=== PATIENT | male | born 1970 | race African-American/Black ===

== ENCOUNTER 2020-12-24 01:21 | Inpatient (IN) | payer MEDICARE ==
[2020-12-24] MEDS ORDERED: Nitroglycerin 2% Ointment 1 INCH/1 GM Packet ONE ×2 (01:34→03:21)
[2020-12-24] MEDS ORDERED: Aspirin 325 MG TAB ONE (02:29)
[2020-12-24 02:42] LABS: ALT (SGPT) 21 U/L (8-55); AST (SGOT) 27 U/L (5-34); Albumin 4.2 g/dL (3.5-5.0); Alkaline Phosphatase 87 U/L (40-110); Anion Gap 22 mmol/L (10-20); BUN (Urea Nitrogen) 66 mg/dL (8.4-25.7); Bilirubin, Total 0.4 mg/dL (0.2-1.2); Calc. Creatinine Clearance 0 mL/min (70-130); Calcium 8.6 mg/dL (7.8-10.44); Carbon Dioxide 27 mmol/L (22-29); Chloride 96 mmol/L (98-107); Globulin 3.3 g/dL (2.4-3.5); Glucose 94 mg/dL (70-105); Potassium 5.3 mmol/L (3.5-5.1); Protein, Total 7.5 g/dL (6.0-8.3); Sodium 140 mmol/L (136-145)
[2020-12-24 03:00] LABS: CKMB 2.7 ng/mL (0-6.6)
[2020-12-24 03:02] LABS: #Basophils 0.1 10x3/uL (0.0-0.2); #Eosinphils 0.2 10x3/uL (0.0-0.5); #Monocytes 0.4 10x3/uL (0.0-1.1); #Neutrophils 3.8 10x3/uL (1.5-8.4); %Basophils 0.9 % (0.0-2.0); %Eosinophils 3.6 % (0.0-6.0); %Lymphocytes 32.3 % (18.0-47.0); %Monocytes 6.3 % (0.0-10.0); %Neutrophils 56.6 % (40.0-75.0); Hemoglobin 10.9 g/dL (13.5-17.5); Mean Corpuscular HGB CONC 34.6 g/dL (32.0-36.0); Mean Corpuscular Hemoglobin 30.9 pg (27.0-33.0); Mean Corpuscular Volume 89.2 fl (81.2-95.1); Mean Platelet Volume 9.6 fl (7.4-10.4); Platelet Count 227 10x3/uL (150-450); Red Blood Cell (RBC) Count 3.53 10x6/uL (4.32-5.72); White Blood Cell (WBC) Count 6.7 10x3/uL (3.5-10.5)
[2020-12-24 03:03] LABS: Large Platelets SLIGHT; Platelet Morphology Comment Appears Adequate
[2020-12-24 03:07] LABS: SARS-CoV-2 NAA Rapid Test Not Detected (NotDetected)
[2020-12-24] MEDS ORDERED: Guaifenesin DM 100-10/5 ML UDCUP PO PRN (03:48)
[2020-12-24] MEDS ORDERED: Acetaminophen 325 MG TAB PO PRN (03:48)
[2020-12-24] MEDS ORDERED: Dextrose 50% Abboject 50 ML SYRINGE SLOW IVP PRN (03:48)
[2020-12-24] MEDS ORDERED: Dextrose 5% in Water 1,000 ML IV PRN (03:48)
[2020-12-24] MEDS ORDERED: Ondansetron PF 4 MG/2 ML Vial IVP PRN (03:48)
[2020-12-24] MEDS ORDERED: Nitroglycerin 2% Ointment 1 INCH/1 GM Packet TOP PRN (03:51)
[2020-12-24] MEDS ORDERED: hydrALAZINE 20 MG/ML VIAL SLOW IVP PRN (03:51)
[2020-12-24] MEDS ORDERED: cloNIDine 0.1 MG TAB ONE (04:15)
[2020-12-24] MEDS ORDERED: HYDROcodone/Acetaminophen 5/325 mg Tablet ONE (04:16)
[2020-12-24] MEDS ORDERED: Labetalol HCl 100 MG/20 ML VIAL ONE (04:16)
[2020-12-24] MEDS ORDERED: Labetalol HCl 100 MG/20 ML VIAL SLOW IVP PRN (04:22)
[2020-12-24 06:19] VITALS: BMI 35.2
[2020-12-24 07:03] LABS: CKMB 2.3 ng/mL (0-6.6)
[2020-12-24] MEDS ORDERED: hydrALAZINE 25 MG TAB PO SCH (09:00)
[2020-12-24 10:27] LABS: Anion Gap 18 mmol/L (10-20); BUN (Urea Nitrogen) 71 mg/dL (8.4-25.7); Calc. Creatinine Clearance 10 mL/min (70-130); Calcium 7.9 mg/dL (7.8-10.44); Carbon Dioxide 27 mmol/L (22-29); Chloride 99 mmol/L (98-107); Glucose 72 mg/dL (70-105); Potassium 5.3 mmol/L (3.5-5.1); Sodium 139 mmol/L (136-145)
[2020-12-24 10:51] LABS: CKMB 1.9 ng/mL (0-6.6)
[2020-12-24] MEDS ORDERED: Heparin 10,000 UNITS/ 10 ML VIAL SLOW IVP PRN (11:37)
[2020-12-24] MEDS ORDERED: HYDROcodone/Acetaminophen 5/325 mg Tablet PO PRN (17:07)
[2020-12-24] MEDS: glipiZIDE 10 MG TAB PO SCH (19:31)
[2020-12-24] MEDS: Sevelamer Carbonate 800 MG TAB PO SCH ×2 (19:31→19:32)
[2020-12-24] MEDS: Aspirin 81 mg Enteric Coated Tablet PO SCH (19:32)
[2020-12-24] MEDS: cloNIDine 0.1 MG TAB PO SCH ×2 (19:32→20:53)
[2020-12-24] MEDS: Clopidogrel Bisulfate 75 MG TAB PO SCH (19:32)
[2020-12-24] MEDS: Heparin 5,000 UNITS/ML VIAL SC SCH ×3 (19:32→20:51)
[2020-12-24] MEDS: Cholecalciferol 1,000 UNITS (25 MCG) TAB PO SCH ×2 (19:32→20:50)
[2020-12-24] MEDS: Amlodipine 10 MG TAB PO SCH (19:32)
[2020-12-24] MEDS: hydrALAZINE 25 MG TAB PO SCH ×2 (19:33→20:53)
[2020-12-24] MEDS: Lantus 1000 UNITS/10 ML VIAL SC SCH (19:33)
[2020-12-24] MEDS: Metoprolol Tartrate 50 MG TAB PO SCH ×2 (19:33→20:53)
[2020-12-24] MEDS: HYDROcodone/Acetaminophen 10/325 mg Tablet PO PRN (20:40)
[2020-12-24] MEDS ORDERED: Atorvastatin Calcium 40 MG TAB PO SCH (21:00)
[2020-12-24] MEDS ORDERED: cloNIDine 0.1 MG TAB PO SCH (21:00)
[2020-12-25] MEDS: HYDROcodone/Acetaminophen 10/325 mg Tablet PO PRN ×3 (00:49→20:39)
[2020-12-25] MEDS: HumaLOG 300 UNITS/3 ML VIAL SC PRN ×3 (00:54→21:34)
[2020-12-25 05:39] LABS: #Basophils 0.1 10x3/uL (0.0-0.2); #Eosinphils 0.2 10x3/uL (0.0-0.5); #Monocytes 0.5 10x3/uL (0.0-1.1); #Neutrophils 4.2 10x3/uL (1.5-8.4); %Basophils 0.7 % (0.0-2.0); %Eosinophils 3.2 % (0.0-6.0); %Lymphocytes 30.4 % (18.0-47.0); %Monocytes 7.2 % (0.0-10.0); %Neutrophils 58.2 % (40.0-75.0); Hemoglobin 8.2 g/dL (13.5-17.5); Mean Corpuscular HGB CONC 34.6 g/dL (32.0-36.0); Mean Corpuscular Hemoglobin 30.5 pg (27.0-33.0); Mean Corpuscular Volume 88.1 fl (81.2-95.1); Mean Platelet Volume 9.6 fl (7.4-10.4); Platelet Count 271 10x3/uL (150-450); RBC Distribution Width 14.7 % (11.5-14.5); Red Blood Cell (RBC) Count 2.69 10x6/uL (4.32-5.72); White Blood Cell (WBC) Count 7.1 10x3/uL (3.5-10.5)
[2020-12-25 05:59] LABS: ALT (SGPT) 15 U/L (8-55); AST (SGOT) 13 U/L (5-34); Albumin 3.8 g/dL (3.5-5.0); Alkaline Phosphatase 77 U/L (40-110); Anion Gap 15 mmol/L (10-20); BUN (Urea Nitrogen) 40 mg/dL (8.4-25.7); Bilirubin, Total 0.4 mg/dL (0.2-1.2); Calc. Creatinine Clearance 15 mL/min (70-130); Calcium 8.4 mg/dL (7.8-10.44); Carbon Dioxide 29 mmol/L (22-29); Chloride 94 mmol/L (98-107); Globulin 3.5 g/dL (2.4-3.5); Glucose 101 mg/dL (70-105); Potassium 4.2 mmol/L (3.5-5.1); Protein, Total 7.3 g/dL (6.0-8.3); Sodium 134 mmol/L (136-145)
[2020-12-25] MEDS: glipiZIDE 10 MG TAB PO SCH ×2 (08:30→19:16)
[2020-12-25] MEDS: Aspirin 81 mg Enteric Coated Tablet PO SCH (08:34)
[2020-12-25] MEDS: Clopidogrel Bisulfate 75 MG TAB PO SCH (08:34)
[2020-12-25] MEDS: Metoprolol Tartrate 50 MG TAB PO SCH ×2 (08:34→20:42)
[2020-12-25] MEDS: Sevelamer Carbonate 800 MG TAB PO SCH ×3 (08:37→19:15)
[2020-12-25] MEDS: hydrALAZINE 25 MG TAB PO SCH ×4 (08:42→21:34)
[2020-12-25] MEDS: Amlodipine 10 MG TAB PO SCH (08:42)
[2020-12-25] MEDS: Cholecalciferol 1,000 UNITS (25 MCG) TAB PO SCH ×2 (08:43→20:40)
[2020-12-25] MEDS: cloNIDine 0.1 MG TAB PO SCH ×2 (08:43→20:41)
[2020-12-25] MEDS: Lantus 1000 UNITS/10 ML VIAL SC SCH (08:45)
[2020-12-25] MEDS: Heparin 5,000 UNITS/ML VIAL SC SCH ×3 (08:46→20:41)
[2020-12-25] MEDS ORDERED: Epoetin (ESRD) 10,000 UNITS/ML VIAL SC SCH (09:00)
[2020-12-26 06:34] LABS: #Eosinphils 0.3 10x3/uL (0.0-0.5); #Monocytes 0.7 10x3/uL (0.0-1.1); #Neutrophils 3.5 10x3/uL (1.5-8.4); %Basophils 0.5 % (0.0-2.0); %Eosinophils 4.4 % (0.0-6.0); %Lymphocytes 36.7 % (18.0-47.0); %Monocytes 9.6 % (0.0-10.0); %Neutrophils 48.4 % (40.0-75.0); Hemoglobin 8.4 g/dL (13.5-17.5); Mean Corpuscular HGB CONC 34.3 g/dL (32.0-36.0); Mean Corpuscular Hemoglobin 30.3 pg (27.0-33.0); Mean Corpuscular Volume 88.4 fl (81.2-95.1); Mean Platelet Volume 9.9 fl (7.4-10.4); Platelet Count 284 10x3/uL (150-450); RBC Distribution Width 14.6 % (11.5-14.5); Red Blood Cell (RBC) Count 2.77 10x6/uL (4.32-5.72); White Blood Cell (WBC) Count 7.3 10x3/uL (3.5-10.5)
[2020-12-26 06:59] LABS: ALT (SGPT) 13 U/L (8-55); AST (SGOT) 12 U/L (5-34); Albumin 3.7 g/dL (3.5-5.0); Alkaline Phosphatase 75 U/L (40-110); Anion Gap 19 mmol/L (10-20); BUN (Urea Nitrogen) 60 mg/dL (8.4-25.7); Bilirubin, Total 0.3 mg/dL (0.2-1.2); Calc. Creatinine Clearance 11 mL/min (70-130); Calcium 8.3 mg/dL (7.8-10.44); Carbon Dioxide 28 mmol/L (22-29); Chloride 95 mmol/L (98-107); Globulin 3.4 g/dL (2.4-3.5); Glucose 129 mg/dL (70-105); Magnesium 2.4 mg/dL (1.6-2.6); Phosphorus 5.3 mg/dL (2.3-4.7); Protein, Total 7.1 g/dL (6.0-8.3); Sodium 137 mmol/L (136-145)
[2020-12-26] MEDS: Sevelamer Carbonate 800 MG TAB PO SCH (09:44)
[2020-12-26] MEDS: Amlodipine 10 MG TAB PO SCH (09:45)
[2020-12-26] MEDS: hydrALAZINE 25 MG TAB PO SCH ×2 (09:45→10:02)
[2020-12-26] MEDS: Aspirin 81 mg Enteric Coated Tablet PO SCH (09:45)
[2020-12-26] MEDS: Metoprolol Tartrate 50 MG TAB PO SCH (09:45)
[2020-12-26] MEDS: Clopidogrel Bisulfate 75 MG TAB PO SCH (09:45)
[2020-12-26] MEDS: cloNIDine 0.1 MG TAB PO SCH (09:46)
[2020-12-26] MEDS: Heparin 5,000 UNITS/ML VIAL SC SCH (09:48)
[2020-12-26] MEDS: Cholecalciferol 1,000 UNITS (25 MCG) TAB PO SCH (09:48)
[2020-12-26] MEDS: glipiZIDE 10 MG TAB PO SCH (09:50)
[2020-12-26] MEDS: Lantus 1000 UNITS/10 ML VIAL SC SCH (09:50)
[2020-12-26] MEDS: HYDROcodone/Acetaminophen 10/325 mg Tablet PO PRN (10:10)
[2020-12-26 12:51] VITALS: BP 168/93; TEMP 97.6
== END 2020-12-26 12:15 | disposition home or self-care (01) | DRG 291 ==
LOC: CSHERS 01:21 → CSHTELE 06:01
PROVIDERS: ADMIT Student in an Organized Health Care Education/Training Program; ATTEND Internal Medicine
PROC: 5A09457 Assistance with Respiratory Ventilation, 24-96 Consecutive Hours, Continuous Positive Airway Pressure (ICD-10-PCS; principal; 2020-12-24)
PROC: 5A1D70Z Performance of Urinary Filtration, Intermittent, Less than 6 Hours Per Day (ICD-10-PCS; 2020-12-24)
DX: I13.2 Hypertensive heart and chronic kidney disease with heart failure and with stage 5 chronic kidney disease, or end stage renal disease (principal); J96.01 Acute respiratory failure with hypoxia; N18.6 End stage renal disease; I50.33 Acute on chronic diastolic (congestive) heart failure; I16.1 Hypertensive emergency; Z20.822 Contact with and (suspected) exposure to COVID-19; E87.5 Hyperkalemia; D63.1 Anemia in chronic kidney disease; R77.8 Other specified abnormalities of plasma proteins; E87.79 Other fluid overload; E78.5 Hyperlipidemia, unspecified; I25.10 Atherosclerotic heart disease of native coronary artery without angina pectoris; Z95.5 Presence of coronary angioplasty implant and graft; E11.51 Type 2 diabetes mellitus with diabetic peripheral angiopathy without gangrene; E11.22 Type 2 diabetes mellitus with diabetic chronic kidney disease; E11.65 Type 2 diabetes mellitus with hyperglycemia; F17.210 Nicotine dependence, cigarettes, uncomplicated; Z79.84 Long term (current) use of oral hypoglycemic drugs; Z79.899 Other long term (current) drug therapy; Z95.820 Peripheral vascular angioplasty status with implants and grafts; Z88.5 Allergy status to narcotic agent; Z99.2 Dependence on renal dialysis; Z88.8 Allergy status to other drugs, medicaments and biological substances; Z83.3 Family history of diabetes mellitus; Z91.14 Patient's other noncompliance with medication regimen; Z79.01 Long term (current) use of anticoagulants
CPT/HCPCS: 0240U; 36415; 36416; 71045; 80053; 82553; 83735; 83880; 84100; 84484; 85025; 85379; 90935; 93005; 93306; 94660; 94760; 96374; 96376; G0257; J1644; J1815; Q4081

== ENCOUNTER 2020-12-27 11:45 | Outpatient (CLI) | payer MEDICARE | END 2020-12-27 11:46 | disposition home or self-care (01) | LOC: CSHWCC 11:45 | PROVIDERS: ATTEND Nurse Practitioner Family | DX: T81.89XD Other complications of procedures, not elsewhere classified, subsequent encounter (principal); E11.622 Type 2 diabetes mellitus with other skin ulcer; L98.499 Non-pressure chronic ulcer of skin of other sites with unspecified severity; G89.11 Acute pain due to trauma; L05.01 Pilonidal cyst with abscess; B96.89 Other specified bacterial agents as the cause of diseases classified elsewhere; I10 Essential (primary) hypertension | CPT/HCPCS: 97139; 97605; G0463; 99203 ==

== ENCOUNTER 2021-01-10 10:35 | Outpatient (CLI) | payer MEDICARE | END 2021-01-10 10:36 | disposition home or self-care (01) | LOC: CSHWCC 10:35 | PROVIDERS: ATTEND Nurse Practitioner Family | DX: T81.89XD Other complications of procedures, not elsewhere classified, subsequent encounter (principal); E11.622 Type 2 diabetes mellitus with other skin ulcer; L05.01 Pilonidal cyst with abscess; B96.89 Other specified bacterial agents as the cause of diseases classified elsewhere; G89.11 Acute pain due to trauma; I10 Essential (primary) hypertension | CPT/HCPCS: 99213; G0463 ==

== ENCOUNTER 2021-01-24 09:24 | Outpatient (CLI) | payer MEDICARE | END 2021-01-24 09:25 | disposition home or self-care (01) | LOC: CSHWCC 09:24 | PROVIDERS: ATTEND Nurse Practitioner Family | DX: T81.89XD Other complications of procedures, not elsewhere classified, subsequent encounter (principal); E11.622 Type 2 diabetes mellitus with other skin ulcer; G89.11 Acute pain due to trauma; I10 Essential (primary) hypertension; L05.01 Pilonidal cyst with abscess; B96.89 Other specified bacterial agents as the cause of diseases classified elsewhere | CPT/HCPCS: 97139; G0463; 99212 ==

== ENCOUNTER 2021-02-14 08:41 | Outpatient (CLI) | payer MEDICARE | END 2021-02-14 08:42 | disposition home or self-care (01) | LOC: CSHWCC 08:41 | PROVIDERS: ATTEND Nurse Practitioner Family | DX: T81.89XD Other complications of procedures, not elsewhere classified, subsequent encounter (principal); E11.622 Type 2 diabetes mellitus with other skin ulcer; L98.499 Non-pressure chronic ulcer of skin of other sites with unspecified severity; L05.01 Pilonidal cyst with abscess; B96.89 Other specified bacterial agents as the cause of diseases classified elsewhere; I10 Essential (primary) hypertension; G89.11 Acute pain due to trauma | CPT/HCPCS: 97139; G0463; 99213 ==